=== PATIENT | male | born 1935 | race Caucasian/White ===

== ENCOUNTER → 2019-01-20 | Outpatient (CLI) | payer OTHER, MEDICARE ==
[~2019-01-20] VITALS: Ht 167.6 cm; Wt 95.2 kg
[~2019-01-20] MED LIST: AMBIEN 10 MG TA10 MG PO; CLOBETASOL PROP50 ML TOP; CO Q-10100 MG PO; ECONAZOLE 1% CR30 G1 TOP; ERGOCALCIF50000 UNIT PO; FLOMAX0.4 MG PO; IMDUR 30 MG TAB30 M1 PO; LASIX 80 MG TAB80 MG PO; LEXAPRO 10 MG T10 M2 PO; LIVALO2 MG PO; LO-DOSE ASPIRIN81 M1 PO; LOPERAMIDE 2 MG2 M1 PO; LOSARTAN-HCTZ1 EAC1 PO; LUNESTA3 MG PO; MIRAPEX1 MG PO; MUCINEX DM ER1 EACH PO; OMEPRAZOLE20 M1 PO; SINGULAIR 10 MG10 M1 PO; SUDAFED PE SIN1 EACH PO; TOPICORT60 G1 TOP; TOPROL XL25 MG PO; TRIAMCINOLONE A80 G2 TOP; VITAMIN D3400 UNIT PO
[2019-01-20 14:33] VITALS: BP 102/57
--- NOTE | 2019-01-20 14:52 | NUR ---
Pain Clinic Assessment: 1. History of Osteoarthritis: History of Rheumatoid Arthritis: 2. Height: 5 ft. 6 in. 167.6 cm. Weight: 209.8 lb. oz. 95.165 kg. Patient's BMI: 33.9 3. Vital Signs: BP: 102/57 Pulse: 70 Resp: 14 Temp: 02 Sat: 97 ECG Mon: 4. Pain Intensity: 2 NOW 5 MAX 5. Fall Risk: Dizziness: N Needs help standing or walking: N Fallen in the last 3 months: N Fall risk comments: 6. Patient on Blood Thinner: None 7. History of Hypertension: N 8. Opioid Therapy greater than 6 weeks: N Opiate Contract Signed: 9. Risk Assessment Tool Provided: 10. Functional Assessment Tool: 11. Recreational Drug Use: Never Drug Type: Tobacco Use: Never Smoker Tobacco Type: Amount or Packs/day: How Many Years: Alcohol Use: Yes Frequency: Daily Quant: WINE
--- NOTE | 2019-01-28 12:39 | HPC ---
[facility] [address] [place] [address] PAIN MANAGEMENT CONSULTATION Name: CARSON PÉREZ Room #: REG [facility] JessicaBeccaPamelaBecca#: [id number] Admission: 01/20/19 ������������������ Attend Phys: Aidan Baig DO Discharge: ������������������ Date of : 36 Report #: [id number] THIS REPORT FOR: //name// CC: Aidan Turner MD DATE OF SERVICE: 01/20/2019 CHIEF COMPLAINT: Low back pain, left lower extremity pain and paresthesias. HISTORY OF PRESENT ILLNESS: As you know, the patient is an 83-year-old male who has had a longstanding history of low back pain, left lower extremity pain with paresthesias. The patient states the pain began in early 07/2017. He was last seen in our clinic 09/03/2017 where he underwent a lumbar epidural injection under fluoroscopic guidance with good and prolonged benefit. He returns today with pain score of anywhere from 2-5/10. He reports near 100% improvement in overall pain with previous epidural injection with a slow and progressive return of symptoms without inciting injury or trauma. He returns today per the request of Dr. Turner to undergo the next in the series of lumbar epidural injection to address lumbar radicular symptoms. The patient denies injury or trauma that may have led to symptom recurrence. ALLERGIES: LATEX, PENICILLIN, SODIUM LAURYL SULFATE, CIPROFLOXACIN. CURRENT MEDICATIONS: Aristocort, Topicort, Mucinex, vitamin E, montelukast sodium, Zolpidem, Lexapro, tamsulosin, isosorbide dinitrate, Mirapex, omeprazole, losartan/hydrochlorothiazide, bit of a statin, furosemide, Coenzyme Q10 and aspirin. SOCIAL HISTORY: The patient denies tobacco, IV or illicit drug use. Admits to approximately 4 glasses of wine per day. He is retired, retired nearly 12 years ago, unaccompanied today. IMAGING: No new imaging available. PQRS: The patient has no known osteoarthritic changes of the lumbar spine, bilateral hips, no rheumatoid arthritis. He is placing pain today anywhere from 2-5/. He is not a fall risk, has not had a fall in the last 3 months. He is not on blood thinners. He is treated for hypertension. He is not on chronic opioids and has a low opioid addiction potential. Pain impact score 35/70, moderate interference of daily activities secondary to pain. PHYSICAL EXAMINATION: VITAL SIGNS: Blood pressure 102/57, pulse 70, respiratory rate 14 and unlabored. The patient is 97% on room air. Height 5 feet 6 [place] [address] PAIN MANAGEMENT CONSULTATION Name: CARSON PÉREZ Room #: REG [facility] M..#: [id number] Admission: 01/20/19 ������������������ Attend Phys: Aidan Baig DO Discharge: ������������������ Date of : 36 Report #: [id number] 209.8 pounds, BMI calculated 33.9. GENERAL: Well-developed, well-nourished, well-hydrated 83-year-old male appearing stated age, placing current pain score 2-5/10. HEENT: Normocephalic, atraumatic. Pupils equal, round, reactive to light. EXTREMITIES: Show no clubbing, no cyanosis, and no edema. MUSCULOSKELETAL: Seated straight leg raising negative. Supine straight leg raising positive. Lynda's test negative. Modified Gaenslen's positive for axial low back pain. Ankle clonus negative. Babinski is negative. ASSESSMENT: 1. Symptomatic lumbar radiculopathy. 2. Lumbosacral spondylosis with radiculopathy. 3. Degeneration of lumbar spine. 4. Chronic intractable pain. PLAN: 1. The patient returns today in followup visit per the request of Dr. Turner to undergo next in the series of lumbar epidural injections. The last epidural injection provided 09/03/2017 gave 100% improvement in overall pain with a slow and progressive return of symptoms. He returns today in followup visit, denying any new injury or trauma that may have led to symptom recurrence. He has returned today to undergo next in the series of lumbar epidural injections. 2. The patient was advised risks and benefits of a lumbar epidural injection. These risks include but are not necessarily limited to bleeding, bruising, infection, worsening pain, no relief of pain, also risk of temporary or permanent muscle weakness, temporary or permanent nerve damage, possible paralysis, post-dural puncture headache and . The patient states understood and wished to proceed. 3. No medication changes made at today's visit. The patient will continue current medical therapy as previously prescribed. 4. We will see the patient back in followup visit on an as needed basis for possible next in the series of lumbar epidural injections. DESCRIPTION OF PROCEDURE: L5-S1 left paramedian epidural steroid injection under fluoroscopic guidance. This is the first procedure of the second series that the patient is undergoing. After obtaining written consent, the patient was taken back to the fluoroscopy suite, placed in a prone position with pillow under the abdomen to decrease lumbar lordosis. The skin overlying the lumbosacral area was then prepped and draped in aseptic fashion. The L5-S1 vertebral interspace was then identified by AP fluoroscopy. The skin and subcutaneous tissue overlying the target site of injection was anesthetized with 3 mL 1% lidocaine. A 20-gauge 3-1/2 inch Tuohy needle was then advanced under fluoroscopic guidance [facility] [address] [place] [address] PAIN MANAGEMENT CONSULTATION Name: BETOCARSONKervin BARCENAS Room #: REG COLE Dean#: [id number] Admission: 01/20/19 ������������������ Attend Phys: Aidan Baig DO Discharge: ������������������ Date of : 36 Report #: [id number] towards the epidural space using a left paramedian approach. The epidural space was identified using loss of resistance to air technique. After negative aspiration for heme or cerebrospinal fluid, a total of 1 mL of Omnipaque was injected. A lumbar epidurogram was confirmed using both AP and lateral fluoroscopy. After negative aspiration for heme or cerebrospinal fluid, 5 mL of a solution containing 2 mL 40 mg per mL, 80 mg total triamcinolone and 3 mL of lidocaine 1%. Contrast spread was noted posterior epidural space. The needle was then retracted approximately half way and needle tract flushed with 1 mL of lidocaine. Needle was then removed. There were no apparent sensory or motor deficits in the lower extremity following the procedure. A sterile bandage was placed over the injection site. The heart rate, pulse, oximetry and blood pressure were continuously monitored after the procedure. There were no apparent complications. The patient tolerated the procedure well and was carefully escorted to the recovery room in stable condition. There were no apparent complications. After meeting discharge criteria, the patient was then discharged home. ��������������������������������������������� <ELECTRONICALLY SIGNED> ���������������������������������������� By: Aidan aBig DO ��������������������������������������������� 01/28/19 1239 [id number] Aidan Baig DO /nt
== END | disposition home or self-care (01) ==
LOC: PAIN 07:11
DX: M51.16 Intervertebral disc disorders with radiculopathy, lumbar region (principal); M47.27 Other spondylosis with radiculopathy, lumbosacral region; G89.29 Other chronic pain; M19.90 Unspecified osteoarthritis, unspecified site; I10 Essential (primary) hypertension; Z91.040 Latex allergy status; Z88.8 Allergy status to other drugs, medicaments and biological substances; Z79.82 Long term (current) use of aspirin; Z79.899 Other long term (current) drug therapy

== ENCOUNTER → 2019-02-10 | Outpatient (CLI) | payer OTHER, MEDICARE ==
[~2019-02-10] VITALS: Ht 167.6 cm; Wt 93.3 kg
--- NOTE | ~2019-02-10 | HPC ---
[facility] [place] [address] PAIN MANAGEMENT CONSULTATION Name: BETOCARSONKervin BARCENAS Room #: REG COLE Dean#: [id number] Admission: 02/10/19 ������������������ Attend Phys: Aidan Baig DO Discharge: ������������������ Date of : 36 Report #: [id number] THIS REPORT FOR: //name// CC: Aidan Turner MD DATE OF SERVICE: 02/10/2019 REFERRING PHYSICIAN: Dougie Turner M.D. CHIEF COMPLAINT: Low back pain, left lower extremity pain and paresthesias. HISTORY OF PRESENT ILLNESS: As you know, the patient is a very pleasant 83-year-old male who returns today in followup visit to undergo next in the series of lumbar epidural injections under fluoroscopic guidance. He recently underwent an epidural injection on 01/20/2019, which provided the patient nearly 100% improvement in overall pain, lasting for approximately 2-1/2 weeks with a slow and progressive return of symptoms. He has denied any new injury or trauma that may have led to symptom reoccurrence. He returns today in followup visit with pain score of 4/10, requesting to undergo this epidural injection to build on success of previous intervention. ALLERGIES: LATEX, PENICILLIN, SODIUM LAURYL SULFATE AND CIPROFLOXACIN. CURRENT MEDICATIONS: Aristocort, Mucinex, vitamin E, montelukast sodium, Zolpidem, Lexapro, tamsulosin, isosorbide dinitrate, Mirapex, omeprazole, losartan, hydrochlorothiazide, furosemide, Coenzyme Q, aspirin and pitavastatin. SOCIAL HISTORY: The patient denies tobacco, IV or illicit drug use. Admits to approximately 4 glasses of wine per day. He is retired, retired nearly 12 years ago, unaccompanied. IMAGING: No new imaging available. PQRS: The patient has known arthritic changes of the lumbar spine and bilateral hips. No rheumatoid arthritis. He is not a fall risk and has not had a fall in the last 3 months. He is placing current pain score at 4/10. He is not on blood thinners. He is being treated for hypertension. He has not been on chronic opioids. He is placing pain impact score at 35/70, moderate interference with daily activities secondary to pain. PHYSICAL EXAMINATION: VITAL SIGNS: Blood pressure 109/57, pulse 73, respiratory rate 14 and unlabored. The patient is 95% on room air. Height 5 feet 6 inches tall, weight 205.6 pounds and BMI calculated 33.2. [facility] [address] [place] [address] PAIN MANAGEMENT CONSULTATION Name: AILYN PÉREZKervin BARCENAS Room #: REG [facility]#: [id number] Admission: 02/10/19 ������������������ Attend Phys: Aidan Baig DO Discharge: ������������������ Date of : 36 Report #: [id number] GENERAL: Well-developed, well-nourished and well-hydrated 83-year-old male, appearing his stated age, placing current pain score around 4/10. HEENT: He is normocephalic, atraumatic. Pupils equal, round and reactive to light. Speech fluent for the patient. EXTREMITIES: Show no clubbing, no cyanosis, no edema. MUSCULOSKELETAL: Lower extremity strength is symmetrical. No noted focal weakness. Seated straight leg raising negative. Supine straight leg raising positive. Lynda's test negative. Modified Gaenslen's positive for axial low back pain. Ankle clonus negative. Babinski is negative. ASSESSMENT: 1. Symptomatic lumbar radiculopathy. 2. Lumbosacral spondylosis with radiculopathy. 3. Degeneration of the lumbar spine. 4. Chronic intractable pain. PLAN: 1. The patient returns today in followup visit to undergo next in the series of epidural injections under fluoroscopic guidance. He received excellent benefit with previous epidural injection, but unfortunately, his symptoms have begun to return. He has been advised of the risks and benefits of the procedure. He states understood and wishes to proceed. 2. No medication changes made at today's visit. The patient will continue current medical therapy as previously prescribed. 3. We will see the patient back in followup visit on an as-needed basis for next in the series of lumbar epidural injections. PROCEDURE: L5-S1 left paramedian epidural steroid injection under fluoroscopic guidance. This is the second procedure of the second series that the patient is undergoing. After obtaining written consent, the patient was taken back to the fluoroscopy suite, placed in a prone position with pillow under the abdomen to decrease lumbar lordosis. The skin overlying the lumbosacral area was then prepped and draped in aseptic fashion. The L5-S1 vertebral interspace was then identified by AP fluoroscopy. The skin and subcutaneous tissue overlying the target site of injection was anesthetized with 3 mL 1% lidocaine. A 20-guage 3-1/2 inch Tuohy needle was then advanced under fluoroscopic guidance towards the epidural space using a left paramedian approach. The epidural space was identified using loss of resistance to air technique. After negative aspiration for heme or cerebrospinal fluid, a total of 1 mL of Omnipaque was injected. A lumbar epidurogram was confirmed using both AP and lateral fluoroscopy. After negative aspiration for heme or cerebrospinal fluid, 5 mL of [facility] [address] [place] [address] PAIN MANAGEMENT CONSULTATION Name: CARSON PÉREZ Room #: REG [facility]#: [id number] Admission: 02/10/19 ������������������ Attend Phys: Aidan Baig DO Discharge: ������������������ Date of : 36 Report #: [id number] a solution containing 2 mL of 40 mg per mL, 80 mg total triamcinolone and 3 mL of lidocaine 1% was injected in increments. Contrast spread was noted posterior epidural space. The needle was then retracted approximately half way and needle tract flushed with 1 mL of 1% of lidocaine. Needle was then removed. There were no apparent sensory or motor deficits in the lower extremity following the procedure. A sterile bandage was placed over the injection site. The heart rate, pulse, oximetry and blood pressure were continuously monitored after the procedure. There were no apparent complications. The patient tolerated the procedure well and was carefully escorted to the recovery room in stable condition. There were no apparent complications. After meeting discharge criteria, the patient was then discharged home. ��������������������������������������������� ���������������������������������������� By: ��������������������������������������������� 1607 [id number] Aidan Baig DO /nt
[2019-02-10 10:59] VITALS: BP 109/57
--- NOTE | 2019-02-10 11:22 | NUR ---
Pain Clinic Assessment: 1. History of Osteoarthritis: History of Rheumatoid Arthritis: 2. Height: 5 ft. 6 in. 167.6 cm. Weight: 205.6 lb. oz. 93.260 kg. Patient's BMI: 33.2 3. Vital Signs: BP: 109/57 Pulse: 73 Resp: 14 Temp: 02 Sat: 95 ECG Mon: 4. Pain Intensity: 4 NOW 5. Fall Risk: Dizziness: Y Needs help standing or walking: N Fallen in the last 3 months: N Fall risk comments: 6. Patient on Blood Thinner: None 7. History of Hypertension: N 8. Opioid Therapy greater than 6 weeks: N Opiate Contract Signed: 9. Risk Assessment Tool Provided: 10. Functional Assessment Tool: 11. Recreational Drug Use: Never Drug Type: Tobacco Use: Never Smoker Tobacco Type: Amount or Packs/day: How Many Years: Alcohol Use: Yes Frequency: Quant:
== END | disposition home or self-care (01) ==
LOC: PAIN 06:47
DX: M51.16 Intervertebral disc disorders with radiculopathy, lumbar region (principal); M47.27 Other spondylosis with radiculopathy, lumbosacral region; G89.29 Other chronic pain; I10 Essential (primary) hypertension; M16.0 Bilateral primary osteoarthritis of hip; Z98.890 Other specified postprocedural states; Z91.040 Latex allergy status; Z88.8 Allergy status to other drugs, medicaments and biological substances; Z88.0 Allergy status to penicillin; Z79.899 Other long term (current) drug therapy; Z79.82 Long term (current) use of aspirin

== ENCOUNTER → 2019-07-21 | Outpatient (CLI) | payer OTHER, MEDICARE ==
[~2019-07-21] VITALS: Ht 167.6 cm; Wt 93.0 kg
[~2019-07-21] MED LIST changes: +SAVAYSA60 MG PO
[2019-07-21 12:51] VITALS: BP 140/76
--- NOTE | 2019-07-21 12:57 | NUR ---
Pain Clinic Assessment: 1. History of Osteoarthritis: DENIES History of Rheumatoid Arthritis: DENIES 2. Height: 5 ft. 6 in. 167.6 cm. Weight: 205.0 lb. oz. 92.988 kg. Patient's BMI: 33.1 3. Vital Signs: BP: 140/76 Pulse: 67 Resp: 18 Temp: 02 Sat: 93 ECG Mon: 4. Pain Intensity: 2-3 5. Fall Risk: Dizziness: N Needs help standing or walking: N Fallen in the last 3 months: N Fall risk comments: 6. Patient on Blood Thinner: [place] 7. History of Hypertension: N 8. Opioid Therapy greater than 6 weeks: N Opiate Contract Signed: 9. Risk Assessment Tool Provided: 10. Functional Assessment Tool: 11. Recreational Drug Use: Never Drug Type: Tobacco Use: Never Smoker Tobacco Type: Amount or Packs/day: How Many Years: Alcohol Use: Yes Frequency: Daily Quant: 12 OZ WINE
--- NOTE | 2019-08-04 12:47 | HPC ---
[facility] [place] [address] PAIN MANAGEMENT CONSULTATION Name: BETOCARSON BARCENAS Room #: REG COLE TolentinoBecca#: [id number] Admission: 07/21/19 Attend Phys: Aidan Baig DO Discharge: Date of : 36 Report #: [id number] THIS REPORT FOR: //name// CC: Aidan Turner MD DATE OF SERVICE: 07/21/2019 REFERRING PHYSICIAN: Dougie Turner MD CHIEF COMPLAINT: Low back pain, left lower extremity pain and paresthesias. HISTORY OF PRESENT ILLNESS: As you know, the patient is an 84-year-old male, returning in followup visit to undergo next in the series of lumbar epidural injections under fluoroscopic guidance. This is the first in the second series of epidural injections the patient will be undergoing. The patient reports previous epidural injection provided at the last visit gave 100% improvement in overall pain lasting for 2 weeks with a slow and progressive return of symptoms. He is now reporting pain score of around 2-3/10. He returns today in followup visit to undergo next in the series. He denies new injury, trauma or changes in medical therapy since our last visit. ALLERGIES: LATEX, PENICILLIN, SODIUM LAURYL SULFATE, CIPROFLOXACIN. CURRENT MEDICATIONS: See chart. SOCIAL HISTORY: The patient denies tobacco, IV or illicit drug use. Admits to 4 glasses of wine per day, retired, retired nearly 12 years ago, unaccompanied today. IMAGING: No new imaging available. PQRS: The patient has arthritic changes of the lumbar spine, bilateral hips and mildly in the bilateral knees, no rheumatoid arthritis. He is not a fall risk, has not had a fall in last 3 months. He is on blood thinner in the form of Savaysa and has discontinued the medication for the past 48 hours. He is treated for hypertension. He does not take any chronic opioids. He has a low risk for opioid addiction. His pain impact score is 35/70 indicating moderate interference of daily activities secondary to pain. PHYSICAL EXAMINATION: VITAL SIGNS: Blood pressure 140/76, pulse 67, respiratory rate 18 and unlabored. The patient is 93% on room air. Height 5 feet 6 inches tall, weight 205 pounds, BMI calculated 33.1. GENERAL: Well-developed, well-nourished, well-hydrated exogenously obese [address] [address] PAIN MANAGEMENT CONSULTATION Name: CARSON PÉREZ Room #: REG [facility] [place].#: [id number] Admission: 07/21/19 Attend Phys: Aidan Baig DO Discharge: Date of : 36 Report #: [id number] 84-year-old male appearing stated age, pain is rated around 2-3/10. HEENT: Normocephalic, atraumatic. Pupils equal, round, reactive to light. EXTREMITIES: Show no clubbing, no cyanosis, and no edema. MUSCULOSKELETAL: Lower extremity strength is symmetrical, but deconditioned bilaterally. Seated straight leg raising negative. Supine straight leg raising positive on the left. Ankle clonus negative. Babinski is negative. ASSESSMENT: 1. Symptomatic lumbar radiculopathy. 2. Lumbosacral spondylosis with radiculopathy. 3. Degeneration of lumbar spine. 4. Chronic intractable pain. PLAN: 1. The patient returns today in followup visit to undergo the first in the second series of epidural injections under fluoroscopic guidance. He notes good benefit with previous epidural injections. He is hopeful to see similar improvement today. He has been advised risks and benefits of procedure, states he understood and wished to proceed. 2. No medication changes added at today's visit. The patient will continue current medical therapy as previously prescribed. 3. We will see the patient back in followup visit on an as needed basis for possible next in the series of epidural injections. <ELECTRONICALLY SIGNED> By: Aidan Baig DO 08/04/19 1247 0800 1247 Aidan Baig DO /nt
--- NOTE | 2019-08-04 12:47 | P ---
[facility] [place] [address] PROCEDURE REPORT Name: CARSON PÉREZ Room #: REG Kya Moran#: [id number] Admission: 07/21/19 Attend Phys: Aidan Baig DO Discharge: Date of : 36 Report #: [id number] THIS REPORT FOR: //name// CC: Aidan Turner MD DATE OF SERVICE: 07/21/2019 PROCEDURE NOTE DESCRIPTION OF PROCEDURE: L5-S1 left paramedian epidural steroid injection under fluoroscopic guidance. After obtaining written consent, the patient was taken back to fluoroscopy suite, placed in prone position with pillow under abdomen to decrease lumbar lordosis. Skin overlying lumbosacral area was then prepped and draped in aseptic fashion. Lumbar intervertebral spaces identified by AP fluoroscopy. Skin and subcutaneous tissue overlying target site of injection anesthetized with 3 mL of 1% lidocaine. A 20-gauge 3-1/2 inch Tuohy needle advanced under fluoroscopic guidance towards the epidural space using left paramedian approach. Epidural space identified using loss of resistance to air technique. After negative aspiration for heme or cerebrospinal fluid, 1 mL of Omnipaque injected. Lumbar epidurogram confirmed using both AP and lateral fluoroscopy. After negative aspiration for heme or cerebrospinal fluid, 5 mL of a solution containing 2 mL 40 mg per mL, 80 mg total triamcinolone along with 3 mL of lidocaine 1% injected slowly. Needle retracted long-term, flushed with 1 mL of 1% lidocaine and then removed. Sterile bandage placed over injection site. No new motor deficits present in lower extremity following procedure. The patient tolerated procedure well, carefully escorted to recovery room in stable condition. No apparent complications. After meeting discharge criteria, the patient discharged home. <ELECTRONICALLY SIGNED> By: Aidan Baig DO 08/04/19 1247 0800 1255 Aidan Baig DO /nt
== END | disposition home or self-care (01) ==
LOC: PAIN 06:59
DX: M51.16 Intervertebral disc disorders with radiculopathy, lumbar region (principal); M47.27 Other spondylosis with radiculopathy, lumbosacral region; G89.29 Other chronic pain; E66.9 Obesity, unspecified; Z68.33 Body mass index [BMI] 33.0-33.9, adult; Z88.0 Allergy status to penicillin; Z88.8 Allergy status to other drugs, medicaments and biological substances; Z91.040 Latex allergy status; Z79.82 Long term (current) use of aspirin; Z79.899 Other long term (current) drug therapy

== ENCOUNTER → 2020-01-18 | Outpatient (CLI) | payer OTHER, MEDICARE | LOC: SJCVC 14:47 | DX: R94.31 Abnormal electrocardiogram [ECG] [EKG] (principal); I48.0 Paroxysmal atrial fibrillation; I11.0 Hypertensive heart disease with heart failure; I50.32 Chronic diastolic (congestive) heart failure; I65.23 Occlusion and stenosis of bilateral carotid arteries; I82.522 Chronic embolism and thrombosis of left iliac vein; Z95.2 Presence of prosthetic heart valve; Z79.82 Long term (current) use of aspirin ==

== ENCOUNTER → 2020-01-27 | Outpatient (CLI) | payer OTHER, MEDICARE | LOC: SJCVC 12:07 | DX: I11.0 Hypertensive heart disease with heart failure (principal); I50.32 Chronic diastolic (congestive) heart failure; I48.0 Paroxysmal atrial fibrillation; I25.10 Atherosclerotic heart disease of native coronary artery without angina pectoris; E78.00 Pure hypercholesterolemia, unspecified; Z95.2 Presence of prosthetic heart valve; Z79.899 Other long term (current) drug therapy ==

== ENCOUNTER → 2020-02-16 | Outpatient (CLI) | payer OTHER, MEDICARE ==
[~2020-02-16] MED LIST changes: +KLOR-CON M2020 MEQ PO; +LOPERAMIDE 2 MG2 MG PO; +TORSEMIDE100 MG PO
== END ==
LOC: SJCVC 13:22
PROVIDERS: ATTEND Internal Medicine
DX: I11.0 Hypertensive heart disease with heart failure (principal); I50.32 Chronic diastolic (congestive) heart failure; K21.9 Gastro-esophageal reflux disease without esophagitis; I25.10 Atherosclerotic heart disease of native coronary artery without angina pectoris; E78.00 Pure hypercholesterolemia, unspecified; Z79.899 Other long term (current) drug therapy; Z87.891 Personal history of nicotine dependence

== ENCOUNTER → 2020-03-02 | Outpatient (CLI) | payer OTHER, MEDICARE | LOC: SJCVCIMAG 08:49 | PROVIDERS: ATTEND Nuclear Medicine Nuclear Cardiology | DX: I73.9 Peripheral vascular disease, unspecified (principal); I25.10 Atherosclerotic heart disease of native coronary artery without angina pectoris; I10 Essential (primary) hypertension; I48.0 Paroxysmal atrial fibrillation; E78.00 Pure hypercholesterolemia, unspecified; Z95.2 Presence of prosthetic heart valve; Z98.890 Other specified postprocedural states; Z79.899 Other long term (current) drug therapy; Z87.891 Personal history of nicotine dependence ==

== ENCOUNTER → 2020-03-09 | Outpatient (CLI) | payer OTHER, MEDICARE ==
[~2020-03-09] VITALS: Ht 165.1 cm; Wt 83.9 kg
[2020-03-09 07:41] VITALS: BP 110/52
[2020-03-09 08:06] LABS: HEMATOCRIT 30.8 % (42.0-52.0); HEMOGLOBIN 10.1 gm/dL (14.0-18.0); MCH 29.2 pg (26.0-34.0); MCHC 32.8 g/dL (28.0-37.0); MCV 88.9 fL (80.0-100.0); RBC 3.47 mil/uL (4.50-6.00); RDW 19.9 % (10.5-14.5); WBC 5.7 thou/uL (4.0-11.0)
[2020-03-09 08:18] LABS: CALCIUM 9.1 mg/dL (8.5-10.1); CREATININE 1.2 mg/dL (0.7-1.3)
[2020-03-09 08:24] LABS: POTASSIUM 2.9 mmol/L (3.5-5.1)
--- NOTE | 2020-03-10 14:38 | HC ---
[facility] [place] [address] CONSULTATION Name: AILYN PÉREZN SWAPNA Room #: REG COLE Tolentino.#: [id number] Admission: 03/09/20 Attend Phys: Girish August MD Discharge: Date of : 37 Report #: [id number] THIS REPORT FOR: cc: Dougie Turner MD,Steven Blankenship MD, MD ~ CC: Girish Turner DATE OF SERVICE: 03/09/2020 WOUND CARE CONSULTATION REQUESTING PHYSICIAN: Dr. August. CHIEF COMPLAINT: Left foot ulcers and peripheral arterial disease. HISTORY OF PRESENT ILLNESS: This is an 84-year-old white male who is currently in CV holding after he has had an atherectomy in his left popliteal and angioplasty to his left peroneal arteries. The patient himself is somewhat sedated from the recent procedure. There are no other family members with him at this time. The history is obtained from the medical records. 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 August. We have been asked to see the patient in regards to setting up continued wound care as an outpatient for this patient. The patient denies any pain associated with the ulceration on the plantar aspect of his foot. The patient states he has had the wound for a long time, but is unable to give me an exact time frame. The patient is unsure of exactly how he was treating the wounds at this time besides trying to offload them. The patient denies any other associated wounds at this time. PAST MEDICAL HISTORY: Significant for heart valve replacement in 2013, hernia repair, carotid endarterectomy, hypertension, hyperlipidemia, gastroesophageal reflux disease, congestive heart failure, pulmonary artery disease. CURRENT MEDICATIONS: Multiple, I reviewed the patient's medication list. DRUG ALLERGIES: PENICILLIN AND CIPRO. SOCIAL HISTORY: The patient does not smoke or drink alcohol. Supposedly lives with his family members independently. REVIEW OF SYSTEMS: Unobtainable because of the patient's medicaid state. [facility] [address] [place] [address] CONSULTATION Name: CARSON PÉREZ Room #: REG COLE TolentinoBecca#: [id number] Admission: 03/09/20 Attend Phys: Girish August MD Discharge: Date of : 37 Report #: [id number] PHYSICAL EXAMINATION: VITAL SIGNS: Temperature 36.7, pulse 82, respiratory rate 18, BP 110/52. GENERAL: This is an alert and oriented x [address] person, but not [address] or time, white male secondary to anesthesia. HEENT: Normocephalic, atraumatic. Mucous membranes are dry. Pupils are round. Sclerae white. NECK: Supple. LUNGS: Clear. HEART: Regular. ABDOMEN: Soft, nontender. EXTREMITIES: The patient moves all extremities without difficulty. Evaluation of left lower extremity reveals trace edema. Distal pulses are intact. On the plantar aspect of the left foot, there are 2 superficial ulcers, which are clean and granulating. There are no signs of infection. There is a small area of ecchymosis noted on his left pretibial region without open wound. No other associated wounds are noted on the rest of the extremities. NEUROLOGIC: Cranial nerves 2-12 grossly intact. Motor and sensory grossly intact. LABORATORY DATA: White count 5.7, hemoglobin 10.1. IMPRESSION: 1. Chronic ulceration on the plantar aspect of left foot, limited breakdown of subcutaneous tissue. 2. Peripheral arterial disease, now status post acute intervention. 3. History of hypertension. 4. Generalized debility. PLAN: At this time, we will start the patient on foam dressings to the plantar aspect of his ulcerations, changes every 1-2 days. The patient will make an appointment to follow up in my office within the next week for further continued wound care. At that point in time, we will have a more in depth evaluation of the patient's past medical history and continued wound care. We will also encourage continued offloading of the ulcerations as well. <ELECTRONICALLY SIGNED> By: Steven German MD 03/10/20 [id number] Steven German MD /nt
== END | disposition home or self-care (01) ==
LOC: CATH 06:48
PROVIDERS: ATTEND Nuclear Medicine Nuclear Cardiology
DX: I70.213 Atherosclerosis of native arteries of extremities with intermittent claudication, bilateral legs (principal); I70.248 Atherosclerosis of native arteries of left leg with ulceration of other part of lower leg; I70.1 Atherosclerosis of renal artery; I15.0 Renovascular hypertension; L97.929 Non-pressure chronic ulcer of unspecified part of left lower leg with unspecified severity; I10 Essential (primary) hypertension; E78.5 Hyperlipidemia, unspecified; K21.9 Gastro-esophageal reflux disease without esophagitis; Z95.2 Presence of prosthetic heart valve; Z98.890 Other specified postprocedural states; Z79.899 Other long term (current) drug therapy; Z79.01 Long term (current) use of anticoagulants; Z85.828 Personal history of other malignant neoplasm of skin; Z91.040 Latex allergy status; Z88.0 Allergy status to penicillin; Z95.1 Presence of aortocoronary bypass graft; Z88.8 Allergy status to other drugs, medicaments and biological substances; Z79.82 Long term (current) use of aspirin

== ENCOUNTER → 2020-03-14 | Outpatient (CLI) | payer OTHER, MEDICARE | LOC: HYPER 11:31 | PROVIDERS: ATTEND Emergency Medicine | DX: L89.150 Pressure ulcer of sacral region, unstageable (principal); L97.521 Non-pressure chronic ulcer of other part of left foot limited to breakdown of skin; S80.822A Blister (nonthermal), left lower leg, initial encounter; S81.812A Laceration without foreign body, left lower leg, initial encounter; I87.2 Venous insufficiency (chronic) (peripheral); G60.3 Idiopathic progressive neuropathy; I73.89 Other specified peripheral vascular diseases; L84 Corns and callosities; R60.0 Localized edema; I25.10 Atherosclerotic heart disease of native coronary artery without angina pectoris; I48.91 Unspecified atrial fibrillation; E78.00 Pure hypercholesterolemia, unspecified; K58.9 Irritable bowel syndrome, unspecified; H26.9 Unspecified cataract; I11.0 Hypertensive heart disease with heart failure; I50.9 Heart failure, unspecified; M10.9 Gout, unspecified; F32.9 Major depressive disorder, single episode, unspecified; Z85.828 Personal history of other malignant neoplasm of skin; Z87.891 Personal history of nicotine dependence; Z95.4 Presence of other heart-valve replacement; Z95.1 Presence of aortocoronary bypass graft; Z86.718 Personal history of other venous thrombosis and embolism; Z79.82 Long term (current) use of aspirin; X58.XXXA Exposure to other specified factors, initial encounter; Y93.89 Activity, other specified; Y92.89 Other specified places as the place of occurrence of the external cause; Y99.8 Other external cause status ==

== ENCOUNTER → 2020-03-21 | Outpatient (CLI) | payer OTHER, MEDICARE | LOC: HYPER 12:17 | PROVIDERS: ATTEND Emergency Medicine | DX: L89.152 Pressure ulcer of sacral region, stage 2 (principal); L97.521 Non-pressure chronic ulcer of other part of left foot limited to breakdown of skin; S80.822D Blister (nonthermal), left lower leg, subsequent encounter; S81.812D Laceration without foreign body, left lower leg, subsequent encounter; I87.2 Venous insufficiency (chronic) (peripheral); R60.0 Localized edema; I73.89 Other specified peripheral vascular diseases; L84 Corns and callosities; G62.9 Polyneuropathy, unspecified; I25.10 Atherosclerotic heart disease of native coronary artery without angina pectoris; I48.91 Unspecified atrial fibrillation; E78.00 Pure hypercholesterolemia, unspecified; K58.9 Irritable bowel syndrome, unspecified; H26.9 Unspecified cataract; I11.0 Hypertensive heart disease with heart failure; I50.9 Heart failure, unspecified; M10.9 Gout, unspecified; F32.9 Major depressive disorder, single episode, unspecified; Z85.828 Personal history of other malignant neoplasm of skin; Z86.718 Personal history of other venous thrombosis and embolism; Z87.891 Personal history of nicotine dependence; Z79.82 Long term (current) use of aspirin; X58.XXXD Exposure to other specified factors, subsequent encounter ==

== ENCOUNTER → 2020-03-28 | Outpatient (CLI) | payer OTHER, MEDICARE | LOC: HYPER 13:13 | PROVIDERS: ATTEND Emergency Medicine | DX: L89.153 Pressure ulcer of sacral region, stage 3 (principal); L97.521 Non-pressure chronic ulcer of other part of left foot limited to breakdown of skin; S80.822D Blister (nonthermal), left lower leg, subsequent encounter; S81.812D Laceration without foreign body, left lower leg, subsequent encounter; L84 Corns and callosities; R60.0 Localized edema; E78.00 Pure hypercholesterolemia, unspecified; G60.3 Idiopathic progressive neuropathy; H26.9 Unspecified cataract; I87.2 Venous insufficiency (chronic) (peripheral); I73.9 Peripheral vascular disease, unspecified; I25.10 Atherosclerotic heart disease of native coronary artery without angina pectoris; I48.91 Unspecified atrial fibrillation; I11.0 Hypertensive heart disease with heart failure; I50.9 Heart failure, unspecified; K21.9 Gastro-esophageal reflux disease without esophagitis; M10.9 Gout, unspecified; F32.9 Major depressive disorder, single episode, unspecified; Z87.891 Personal history of nicotine dependence; Z85.828 Personal history of other malignant neoplasm of skin; Z86.718 Personal history of other venous thrombosis and embolism; X58.XXXD Exposure to other specified factors, subsequent encounter ==

== ENCOUNTER → 2020-04-06 | Outpatient (CLI) | payer OTHER, MEDICARE | LOC: HYPER 14:21 | PROVIDERS: ATTEND Emergency Medicine | DX: L89.153 Pressure ulcer of sacral region, stage 3 (principal); L97.521 Non-pressure chronic ulcer of other part of left foot limited to breakdown of skin; S80.822D Blister (nonthermal), left lower leg, subsequent encounter; L84 Corns and callosities; E78.00 Pure hypercholesterolemia, unspecified; I48.91 Unspecified atrial fibrillation; I11.0 Hypertensive heart disease with heart failure; I50.9 Heart failure, unspecified; I87.2 Venous insufficiency (chronic) (peripheral); I73.9 Peripheral vascular disease, unspecified; I25.10 Atherosclerotic heart disease of native coronary artery without angina pectoris; G60.3 Idiopathic progressive neuropathy; H26.9 Unspecified cataract; R60.0 Localized edema; K21.9 Gastro-esophageal reflux disease without esophagitis; M10.9 Gout, unspecified; F32.9 Major depressive disorder, single episode, unspecified; Z87.891 Personal history of nicotine dependence; Z85.828 Personal history of other malignant neoplasm of skin; Z86.718 Personal history of other venous thrombosis and embolism; X58.XXXD Exposure to other specified factors, subsequent encounter ==

== ENCOUNTER → 2020-04-11 | Outpatient (CLI) | payer OTHER, MEDICARE | LOC: HYPER 13:09 | PROVIDERS: ATTEND Emergency Medicine | DX: L89.153 Pressure ulcer of sacral region, stage 3 (principal); L97.521 Non-pressure chronic ulcer of other part of left foot limited to breakdown of skin; S80.822D Blister (nonthermal), left lower leg, subsequent encounter; I87.2 Venous insufficiency (chronic) (peripheral); G60.3 Idiopathic progressive neuropathy; L84 Corns and callosities; R60.0 Localized edema; I73.89 Other specified peripheral vascular diseases; I25.10 Atherosclerotic heart disease of native coronary artery without angina pectoris; I48.91 Unspecified atrial fibrillation; E78.00 Pure hypercholesterolemia, unspecified; K58.9 Irritable bowel syndrome, unspecified; H26.9 Unspecified cataract; I11.0 Hypertensive heart disease with heart failure; I50.9 Heart failure, unspecified; M10.9 Gout, unspecified; F32.9 Major depressive disorder, single episode, unspecified; Z86.718 Personal history of other venous thrombosis and embolism; Z79.82 Long term (current) use of aspirin; Z87.891 Personal history of nicotine dependence; X58.XXXD Exposure to other specified factors, subsequent encounter ==